=== PATIENT | female | born 1970 | race Two or more races ===

== ENCOUNTER → 2024-01-22 | Day surgery (SDC) | payer OTHER ==
[~2024-01-22] MED LIST: BUPIVACAINE HCL 30 ML VIAL IJ SCH; BUPIVACAINE HCL/PF 0.5% 30ML ML ONE; CEFTRIAXONE SODIUM 2,000 MG VIAL IV SCH; CEFTRIAXONE SODIUM 2,000 MG VIAL ONE; CLONAZEPAM1 MG PO; COZAAR100 MG PO; CYMBALTA20 MG PO; DIBUCAINE 15 GM OINT..GM. TUBE RECTAL SCH; DIBUCAINE 30 GM TUBE ONE; HEMOSTATIC MATRIX 1 KIT KIT TOP ONE; HEMOSTATIC MATRIX 1 KIT KIT TOP SCH; LIDOCAINE HCL 1%/Epi 20ML VIAL IJ ONE; LIDOCAINE HCL/EPINEPHRINE 10 ML VIAL IJ SCH; METRONIDAZOLE/SODIUM CHLORIDE 500 MG/100 ML PIGGYBACK IV ONE; METRONIDAZOLE/SODIUM CHLORIDE 500 MG/100 ML PIGGYBACK IV SCH; ONDANSETRON HCL 2 MG/ML VIAL ONE; POVIDONE-IODINE 118 ML BOTT TOP ONE; POVIDONE-IODINE 118 ML BOTT TOP SCH; TOPROL XL100 M1 PO; ZEGERID 40 MG1 EACH PO
== END | disposition home or self-care (01) ==
LOC: ADM 01-06 12:30 → CIR.AMB 06:40
PROVIDERS: ATTEND Colon & Rectal Surgery
DX: K64.2 Third degree hemorrhoids (principal); K64.4 Residual hemorrhoidal skin tags; Z20.822 Contact with and (suspected) exposure to COVID-19